=== PATIENT | female | born 1990 | race African-American/Black ===

== ENCOUNTER 2018-09-26 09:08 | Emergency (ER) | payer OTHER ==
[~2018-09-26] VITALS: Ht 160 cm; Wt 79.4 kg
[2018-09-26 09:09] VITALS: BP 153/91
[2018-09-26] MEDS ORDERED: IBUPROFEN 800800 M1 PO (09:14)
== END 2018-09-27 08:34 | disposition home or self-care (01) ==
LOC: ER 09:08
DX: K08.89 Other specified disorders of teeth and supporting structures (principal); F17.210 Nicotine dependence, cigarettes, uncomplicated; Z88.0 Allergy status to penicillin

== ENCOUNTER 2019-04-16 14:29 | Emergency (ER) | payer OTHER ==
[~2019-04-16] VITALS: Ht 160 cm; Wt 83.0 kg
[~2019-04-16 14:29] MED LIST: IBUPROFEN 800800 M1 PO
[2019-04-16 14:46] LABS: URINE BILIRUBIN NEGATIVE (Negative); URINE BLOOD TRACE (Negative); URINE CLARITY CLEAR; URINE COLOR YELLOW; URINE GLUCOSE-RANDOM* NEGATIVE (Negative); URINE KETONES NEGATIVE (Negative); URINE LEUKOCYTES-REFLEX NEGATIVE (Negative); URINE NITRITE-REFLEX NEGATIVE (Negative); URINE PROTEIN (DIPSTICK) NEGATIVE (Negative); URINE SPECIFIC GRAVITY 1.025 (1.005-1.035); URINE UROBILINOGEN 0.2 E.U./dl (0.2-1.0)
[2019-04-16 16:16] LABS: ABSOLUTE NEUTROPHILS 2.8 thou/uL (1.4-8.2); BASOPHILS 0.7 % (0.0-2.0); HEMATOCRIT 38.7 % (37.0-47.0); LYMPHOCYTES 37.6 % (24.0-44.0); MCHC 33.7 g/dL (28.0-37.0); PLATELET COUNT 261 thou/uL (150-400); POLYS 54.7 % (36.0-66.0); RBC 4.07 mil/uL (4.20-5.00); RDW 12.3 % (10.5-14.5); WBC 5.1 thou/uL (4.0-11.0)
[2019-04-16 16:20] LABS: CALCIUM 9.1 mg/dL (8.5-10.1); CREATININE 0.8 mg/dL (0.6-1.0); POTASSIUM 3.4 mmol/L (3.5-5.1)
[2019-04-16 16:26] LABS: ALBUMIN 3.8 g/dL (3.4-5.0); DIRECT BILIRUBIN 0.1 mg/dL (<0.1-0.3); TOTAL BILIRUBIN 0.3 mg/dL (<0.1-1.0); TOTAL PROTEIN 8.7 g/dL (6.4-8.2)
[2019-04-16] MEDS ORDERED: ZOFRAN ODT4 MG PO (16:36)
[2019-04-16 16:41] VITALS: BP 107/68
== END 2019-04-16 17:00 | disposition home or self-care (01) ==
LOC: ER 14:29
PROVIDERS: Emergency Medicine
DX: K52.9 Noninfective gastroenteritis and colitis, unspecified (principal); F17.210 Nicotine dependence, cigarettes, uncomplicated; Z88.0 Allergy status to penicillin

== ENCOUNTER 2019-05-02 13:36 | Emergency (ER) | payer OTHER ==
[~2019-05-02] VITALS: Ht 152.4 cm; Wt 83.0 kg
[~2019-05-02 13:36] MED LIST changes: +ZOFRAN ODT4 MG PO
[2019-05-02 13:46] VITALS: BP 119/73
[2019-05-02] MEDS ORDERED: TESSALON PERLE100 MG PO (14:58)
[2019-05-02] MEDS ORDERED: MEDROLDOSEPACK PO (14:58)
[2019-05-02] MEDS ORDERED: PROAIR HFA8.5 GM INH (14:58)
== END 2019-05-02 15:03 | disposition home or self-care (01) ==
LOC: ER 13:36
DX: J18.9 Pneumonia, unspecified organism (principal); F17.210 Nicotine dependence, cigarettes, uncomplicated; Z88.0 Allergy status to penicillin

== ENCOUNTER 2019-05-10 10:25 | Emergency (ER) | payer OTHER ==
[~2019-05-10] VITALS: Ht 160 cm; Wt 83.0 kg
[~2019-05-10 10:25] MED LIST changes: +MEDROLDOSEPACK PO; +PROAIR HFA8.5 GM INH; +TESSALON PERLE100 MG PO
[2019-05-10] MEDS ORDERED: PREDNISONE 20 M20 MG PO (12:46)
[2019-05-10] MEDS ORDERED: MUCINEX DM ER1 EAC1 PO (12:46)
[2019-05-10 13:12] VITALS: BP 112/66
== END 2019-05-10 13:12 | disposition home or self-care (01) ==
LOC: ER 10:25
DX: R05 Cough (principal); F17.210 Nicotine dependence, cigarettes, uncomplicated; Z88.0 Allergy status to penicillin

== ENCOUNTER 2019-06-12 09:05 | Emergency (ER) | payer OTHER ==
[~2019-06-12] VITALS: Ht 157.5 cm; Wt 81.7 kg
[~2019-06-12 09:05] MED LIST changes: +MUCINEX DM ER1 EAC1 PO; +PREDNISONE 20 M20 MG PO
[2019-06-12 09:08] VITALS: BP 127/74
[2019-06-12] MEDS ORDERED: SUDAFED 12-HOU120 MG PO (10:08)
[2019-06-12] MEDS ORDERED: IBUPROFEN 400400 M2 PO (10:08)
[2019-06-12] MEDS ORDERED: ZPAK PO (10:08)
== END 2019-06-12 10:00 | disposition home or self-care (01) ==
LOC: ER 09:05
DX: R05 Cough (principal); R09.89 Other specified symptoms and signs involving the circulatory and respiratory systems; Z88.0 Allergy status to penicillin; Z87.891 Personal history of nicotine dependence

== ENCOUNTER 2019-06-30 11:27 | Emergency (ER) | payer OTHER ==
[~2019-06-30] VITALS: Ht 160 cm; Wt 81.7 kg
[~2019-06-30 11:27] MED LIST changes: +IBUPROFEN 400400 M2 PO; +SUDAFED 12-HOU120 MG PO; +ZPAK PO
[2019-06-30 12:50] LABS: URINE BILIRUBIN NEGATIVE (Negative); URINE BLOOD TRACE (Negative); URINE CLARITY CLEAR; URINE COLOR YELLOW; URINE GLUCOSE-RANDOM* NEGATIVE (Negative); URINE KETONES NEGATIVE (Negative); URINE NITRITE-REFLEX NEGATIVE (Negative); URINE PROTEIN (DIPSTICK) NEGATIVE (Negative); URINE UROBILINOGEN 0.2 E.U./dl (0.2-1.0)
[2019-06-30 12:52] LABS: URINE LEUKOCYTES-REFLEX 3+ (Negative)
[2019-06-30 13:03] LABS: SQUAMOUS 0-3 Few /LPF (0-3); URINE RBC 0-2 Rare /HPF (0-2); URINE WBC-REFLEX 6-15 Few /HPF (0-5)
[2019-06-30 13:04] LABS: BACTERIA-REFLEX 1-9 Few /HPF (None Seen); CASTS None Seen /LPF (None Seen); CRYSTALS None Seen /LPF (None Seen)
[2019-06-30] MEDS ORDERED: KEFLEX500 M1 PO (13:57)
[2019-06-30] MEDS ORDERED: DIFLUCAN150 MG PO (14:00)
[2019-06-30 14:19] VITALS: BP 121/65
== END 2019-06-30 14:06 | disposition home or self-care (01) ==
LOC: ER 11:27
PROVIDERS: Emergency Medicine
DX: N83.202 Unspecified ovarian cyst, left side (principal); F17.210 Nicotine dependence, cigarettes, uncomplicated; Z88.0 Allergy status to penicillin; Z79.899 Other long term (current) drug therapy

== ENCOUNTER 2020-03-07 01:27 | Emergency (ER) | payer OTHER ==
[~2020-03-07] VITALS: Ht 160 cm; Wt 86.2 kg
[~2020-03-07 01:27] MED LIST changes: +DIFLUCAN150 MG PO; +KEFLEX500 M1 PO
[2020-03-07 01:32] VITALS: BP 117/72
[2020-03-08] MEDS ORDERED: PREDNISONE 20 M20 MG PO (14:44)
[2020-03-08] MEDS ORDERED: ACID CONTROLLER20 MG PO (14:44)
== END 2020-03-07 02:02 | disposition home or self-care (01) ==
LOC: ER 01:27
DX: L25.9 Unspecified contact dermatitis, unspecified cause (principal); F17.210 Nicotine dependence, cigarettes, uncomplicated; Z79.1 Long term (current) use of non-steroidal anti-inflammatories (NSAID); Z79.899 Other long term (current) drug therapy; Z88.0 Allergy status to penicillin

== ENCOUNTER 2020-03-08 14:18 | Emergency (ER) | payer OTHER ==
[~2020-03-08] VITALS: Ht 160 cm; Wt 86.2 kg
[2020-03-08] MEDS ORDERED: PREDNISONE 20 M20 MG PO (14:44)
[2020-03-08] MEDS ORDERED: ACID CONTROLLER20 MG PO (14:44)
[2020-03-08 15:04] VITALS: BP 125/69
== END 2020-03-08 15:04 | disposition home or self-care (01) ==
LOC: ER 14:18
DX: L25.9 Unspecified contact dermatitis, unspecified cause (principal); L40.9 Psoriasis, unspecified; F17.210 Nicotine dependence, cigarettes, uncomplicated; Z88.0 Allergy status to penicillin

== ENCOUNTER 2021-03-24 17:04 | Emergency (ER) | payer OTHER ==
[~2021-03-24] VITALS: Ht 160 cm; Wt 89.8 kg
[~2021-03-24 17:04] MED LIST changes: +ACID CONTROLLER20 MG PO
[2021-03-24 17:11] VITALS: BP 133/84
[2021-03-24] MEDS ORDERED: TESSALON PERLE100 MG PO (18:12)
[2021-03-24] MEDS ORDERED: PROAIR HFA8.5 GM INH (18:12)
== END 2021-03-24 19:02 | disposition home or self-care (01) ==
LOC: ER 17:04
DX: J06.9 Acute upper respiratory infection, unspecified (principal); F17.210 Nicotine dependence, cigarettes, uncomplicated; Z79.899 Other long term (current) drug therapy; Z88.0 Allergy status to penicillin